=== PATIENT | male | born 1985 | race Caucasian/White ===

== ENCOUNTER 2019-02-23 15:41 | Emergency (ER) | payer OTHER ==
[~2019-02-23] VITALS: Ht 182.9 cm; Wt 113.4 kg
[2019-02-23] MEDS ORDERED: AMOXICILLIN 50500 MG PO (16:57)
[2019-02-23 17:18] VITALS: BP 156/107
== END 2019-02-23 17:18 | disposition home or self-care (01) ==
LOC: M.ERS 15:41
DX: J02.0 Streptococcal pharyngitis (principal); F17.210 Nicotine dependence, cigarettes, uncomplicated; Z88.5 Allergy status to narcotic agent